=== PATIENT | female | born 1975 | race Caucasian/White ===

== ENCOUNTER → 2022-02-14 | Outpatient (CLI) | payer OTHER ==
--- NOTE | 2022-02-14 16:12 | MR ---
EXAMINATION TYPE: MR lumbar spine wo con DATE OF EXAM: 02/14/2022 COMPARISON: None HISTORY: LUMBAR SPONDYLOSIS W RADICULOPATHY CONTRAST: 0 mL intravenous Gadavist. TECHNIQUE: Multiplanar, multisequence images of the lumbar spine were acquired. FINDINGS: Cord terminates at the T12-L1 level L5-S1: No significant disc bulge or disc herniation. No spinal canal stenosis. No foraminal stenosi s. . L4-L5: No significant disc bulge or disc herniation. No spinal canal stenosis. No foraminal stenosi s. Some mild ligamentum flavum laxity is present with posterior lateral thecal sac compression. No st enosis is evident. L3-L4: No significant disc bulge or disc herniation. No spinal canal stenosis. No foraminal stenosi s. Mild disc desiccation is present without loss of disc height. L2-L3: No significant disc bulge or disc herniation. No spinal canal stenosis. No foraminal stenosi s. . L1-L2: No significant disc bulge or disc herniation. No spinal canal stenosis. No foraminal stenosi s. . T12-L1: No significant disc bulge or disc herniation. No spinal canal stenosis. No foraminal stenos is. . IMPRESSION: 1. Mild ligamentum flavum laxity at L4-5 with posterior lateral thecal sac compression. Some mild dis c desiccation is present L3-4. 2. Remaining portions of the MRI lumbar spine appear unremarkable.
== END | disposition home or self-care (01) ==
LOC: RADMRIMAIN 12:59
PROVIDERS: ATTEND Orthopaedic Surgery
DX: M47.26 Other spondylosis with radiculopathy, lumbar region (principal); M51.16 Intervertebral disc disorders with radiculopathy, lumbar region
CPT/HCPCS: 72148

== ENCOUNTER → 2023-01-30 | Outpatient (CLI) | payer OTHER ==
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
== END | disposition home or self-care (01) ==
LOC: RADMRIMAIN 10:22
PROVIDERS: ATTEND Orthopaedic Surgery
DX: M25.78 Osteophyte, vertebrae (principal); M48.02 Spinal stenosis, cervical region; M50.323 Other cervical disc degeneration at C6-C7 level; M50.223 Other cervical disc displacement at C6-C7 level; V89.2XXA Person injured in unspecified motor-vehicle accident, traffic, initial encounter
CPT/HCPCS: 72141

== ENCOUNTER → 2024-03-06 | Outpatient (CLI) | payer OTHER ==
[~2024-03-06] MED LIST: REGADENOSON 0.4 MG/5 ML SYRINGE IV PRN
--- NOTE | 2024-03-06 12:13 | CA ---
Lexiscan Nuclear Stress Test Report Name: Virginia Marquez Exam Date: 03/06/2024 10:33 Exam Location: [facility] Ht (in): 64 Wt (lb): 180 BSA: 1.87 Ordering Phys: Delmy Bhardwaj DO Referring Phys: Terrence Serrano MD Technologist: HARSH Age: 48 Gender: F : 1975 Procedure CPT: Indications: I20.0 R07.9 R94.31 F17.200 NICOTINE DEPENDENCE, UN ICD-10 Codes: Patient History: Abnormal EKG and chest pressure Medications: Meds past 24 hrs: Pretest Chest Pain: STRESS TEST Lexiscan Protocol Exercise Duration (min:sec): 02:[address] Depressions (mm): Angina Score: Azevedo Score: Resting HR (bpm): 59 Peak HR (bpm): 115 Resting BP (mmHg): 146 / 97 Peak BP (mmHg): 117 / 70 MPHR: 174 Target HR: 148 % MPHR: 66 METS: 1.0 Total Dose: Peak Dose: Atropine: Double Product: 18093 BP Response: Stress Termination: Infusion complete Stress Symptoms: Nausea Stress Summary: ECG ANALYSIS Resting ECG: Sinus rhythm. Normal conduction. No arrhythmias. Nonspecific ST-T abnormality. Stress ECG: No ECG changes from baseline with Lexiscan infusion. CONCLUSIONS No ECG evidence of ischemia with Lexiscan infusion. Nuclear test results to follow. Dr. Megan Vang MD (Electronically Signed) Final Date: 06 March 2024 12:12
--- NOTE | 2024-03-12 22:05 | NM ---
EXAMINATION TYPE: NM stress lexiscan cardiolite DATE OF EXAM: 03/06/2024 COMPARISON: NONE CLINICAL INDICATION: Female, 48 years old with history of I20.0 R07.9 R94.31 F17.200 NICOTINE DEPENDE NCE, UN; abnormal EKG/chest pressure. TECHNIQUE: After the intravenous administration of 10.2 mCi Tc 99m Sestamibi - Cardiolite resting SP ECT images acquired 45 minutes post injection. The patient received 0.4mg Lexiscan, 25.6 mCi Tc 99m Sestamibi - Stress images obtained [address] injection FINDINGS: Review of stress and rest SPECT images demonstrates some diminished radiotracer uptake in the inferio r lateral wall towards the apex on stress images versus rest images which acute ischemia cannot be ex cluded. Correlation clinically and with EKG advised to determine need for further investigation by po ssible direct catheter angiogram. Gated analysis shows satisfactory wall motion with an estimated lef t ventricular ejection fraction of 56 %. IMPRESSION: As above. [facility], , 03/12/2024 10:02 PM
== END | disposition home or self-care (01) ==
LOC: RADNMMAIN 08:25
PROVIDERS: ATTEND Family Medicine
DX: I20.0 Unstable angina (principal); R07.9 Chest pain, unspecified; R94.31 Abnormal electrocardiogram [ECG] [EKG]; F17.200 Nicotine dependence, unspecified, uncomplicated
CPT/HCPCS: 78452; 93017